=== PATIENT | female | born 1940 | race Caucasian/White ===

== ENCOUNTER 2016-07-18 13:27 | Outpatient (RCR) | payer MEDICARE ==
[~2016-07-18] VITALS: Ht 154.9 cm; Wt 57.6 kg
--- NOTE | 2016-07-18 13:46 | NUR ---
Pt arrived ambulatory with O2 on at 3 L. Pt is alert and oriented x 4. Pt placed in the treatment room. Pt arrived at 1343.
[2016-07-18] MEDS: OMALIZUMAB 150 MG (XOLAIR) VIAL SC SCH (14:13)
--- NOTE | 2016-07-18 14:20 | NUR ---
Pt left ambulatory after receiving med of Xolair SQ, one in upper L arm and one in upper R arm. Pt tolerated it well.
[2016-08-08] MEDS: OMALIZUMAB 150 MG (XOLAIR) VIAL SC SCH (15:30)
[2016-08-22] MEDS: OMALIZUMAB 150 MG (XOLAIR) VIAL SC SCH (13:38)
[2016-09-05] MEDS: OMALIZUMAB 150 MG (XOLAIR) VIAL SC SCH (14:10)
--- NOTE | 2016-09-19 13:24 | NUR ---
Pharmacy getting medication ready. Pt waiting in lobby.
[2016-09-19] MEDS: OMALIZUMAB 150 MG (XOLAIR) VIAL SC SCH (13:58)
[2016-10-03] MEDS ORDERED: OMALIZUMAB 150 MG (XOLAIR) VIAL SC SCH (13:30)
[2016-10-03 13:45] VITALS: BP 159/54
== END 2016-10-16 | disposition home or self-care (01) ==
LOC: EUOP 13:28
PROVIDERS: ATTEND Family Medicine
DX: J45.50 Severe persistent asthma, uncomplicated (principal); J44.9 Chronic obstructive pulmonary disease, unspecified
CPT/HCPCS: 96372; J2357

== ENCOUNTER 2016-10-17 13:24 | Outpatient (RCR) | payer MEDICARE ==
[~2016-10-17] VITALS: Ht 154.9 cm; Wt 57.6 kg
[2016-10-17] MEDS: OMALIZUMAB 150 MG (XOLAIR) VIAL SC SCH (13:33)
[2016-10-31] MEDS: OMALIZUMAB 150 MG (XOLAIR) VIAL SC SCH (13:42)
[2016-11-14 14:18] VITALS: BP 150/60
[2016-11-14] MEDS: OMALIZUMAB 150 MG (XOLAIR) VIAL SC SCH (14:21)
--- NOTE | 2016-11-14 14:31 | NUR ---
Pt arrived on unit. Obtained set of VS. Gave Xolair inj sub-cutaneously bilat upper arms. Pt ambulated off unit to private vehicle accompanied by volunteer.
== END 2016-11-14 14:35 | disposition home or self-care (01) ==
LOC: EUOP 13:24 → OB 11-14 13:39 → EUOP 11-14 14:35
PROVIDERS: ATTEND Family Medicine
DX: J44.9 Chronic obstructive pulmonary disease, unspecified (principal); J45.50 Severe persistent asthma, uncomplicated
CPT/HCPCS: 96372; J2357

== ENCOUNTER 2016-11-28 13:29 | Outpatient (RCR) | payer MEDICARE ==
[~2016-11-28] VITALS: Ht 154.9 cm; Wt 57.6 kg
[~2016-11-28 13:29] MED LIST: AC325T PO; ACET200V4 INH; ALB.5NB20 HHN; ALBU2.5V4 INH; ASCO100T6 PO; ASPI-860 PO; ASPI-894 PO; ATOR20TA PO; AZIT250T5 PO; BIOT5TAB PO; BISA10SU6 RC; BMT1T PO; BUDE10.2 IH; BUDE6HFA IH; BUDE6HFA INH; BUME1TAB4 PO; CALC-444 PO; CALC-696 PO; CARDIO TABS PO; CEFD300C PO; CHOL2000 PO; CITA20TA12 PO; CYAN10006 PO; CYAN10007 PO; DENO60DI SQ; DIGO250T PO; DIGO250T15 PO; DILT-23 PO; DILT120T11 PO; DILT240C86 PO; DOCU100C8 PO; DUONEB 0.5 MG-33 ML IH; FAMO-119 PO; FAMO40TA6 PO; FISH1CAP15 PO; FURO40TA4 PO; GFN600TCR PO; GUAI120013 PO; HYDR-3811 PO; HYPR15DR11 OU; IPRA0.2S18 IH; IPRA0.2S18 INH; LD5PT TOP; LEVA1.2515 IH; LEVA1.253 IH; MAG355OR16 PO; MAGN400T26 PO; MAGN500T PO; MGX400T PO; MICO25PO2 TOP; MTP25TSR PO; MTP50T PO; MULT-301 PO; NFBIOT1000 PO; NITR0.4T7 SL; NS.65NA45 NS; OLME20TA3 PO; OLME20TA5 PO; OMAL150V SC; OMEP10CA2 PO; OMEP20CA12 PO; OMEP20CA6 PO; OSLT75C PO; OXYC1TAB87 PO; POLY17PO2 PO; POLY17PO6 PO; POTA-57 PO; PRD10T PO; PRD20T PO; PRD5T PO; PRED10TA PO; ROFL500T PO; SENN8.6T6 PO; SODI4VIA26 IH; SPIR1TAB3 PO; SPIR25TA PO; TIOT18CA IH; TIOT18CA INH; UBID100C8 PO; UBID10CA5 PO; UBID1CAP51 PO; VIT B 12 PO; VIT1TABL81 PO; ZINC50TA31 PO; [UNRECOGNIZED DRUG - CODE] PO; [UNRECOGNIZED DRUG - OTHER]; [UNRECOGNIZED DRUG - OTHER] INH; vitamin b6
[2016-11-28] MEDS: OMALIZUMAB 150 MG (XOLAIR) VIAL SC SCH (14:01)
[2016-12-12] MEDS: OMALIZUMAB 150 MG (XOLAIR) VIAL SC SCH (14:39)
[2016-12-26] MEDS ORDERED: OMALIZUMAB 150 MG (XOLAIR) VIAL SC SCH (13:30)
[2017-01-07] MEDS ORDERED: LSNP10T PO (13:21)
[2017-01-23] MEDS ORDERED: OMALIZUMAB 150 MG (XOLAIR) VIAL SC SCH (13:30)
[2017-01-23 14:00] VITALS: BP 98/55
== END 2017-02-05 18:20 | disposition home or self-care (01) ==
LOC: EUOP 12-12 14:26
PROVIDERS: ATTEND Family Medicine
DX: J45.50 Severe persistent asthma, uncomplicated (principal); J44.9 Chronic obstructive pulmonary disease, unspecified
CPT/HCPCS: 96372; J2357

== ENCOUNTER → 2017-01-06 | Outpatient (REF) | payer MEDICARE ==
[~2017-01-06] MED LIST changes: +LSNP10T PO
== END ==
LOC: LAB 10:22
PROVIDERS: ATTEND Family Medicine
DX: R05 Cough (principal)
CPT/HCPCS: 87486; 87581; 87633; 87798

== ENCOUNTER 2017-01-07 08:48 | Inpatient (IN) | payer MEDICARE ==
[~2017-01-07] VITALS: Ht 154.9 cm; Wt 56.6 kg
[~2017-01-07 08:48] MED LIST changes: -LSNP10T PO
--- OUTSIDE RECORDS SUMMARY | 2017-01-07 08:54 | XMS REPORT | Continuity of Care Document ---
Author Author [facility] Address Unknown Phone Unavailable Care Team Providers Care Welfare Visitor Name Role Phone Alvaro Lacey MD PCP [phone] Insurance Providers Payer Name Policy Number Subscriber Name Relationship Medicare A And B [id number] Jimmy Freeman 18 Self / Same As Patient Blue Cross Mc[employer] Supp [id number] Jimmy Freeman 16 Self / Same As Patient Advance Directives Directive Response Recorded Date/Time Advanced Directives Yes 10/31/16 1:30pm Type Durable Power of Diamond Driller 02/11/16 2:23pm Type Durable Power of Diamond Driller 10/31/16 1:30pm Other Alma Ocampo Daughter or Jane Tejeda Granddaughter 02/11/16 2:23pm Problems Active Problems Medical Problem Onset Date Status Abdominal pain Unknown Acute Accidental fall 10/11/2013 Acute Acute exacerbation of chronic obstructive pulmonary disease (COPD) ~2014 Acute CAP (community acquired pneumonia) Unknown Acute COPD exacerbation 10/27/2014 Acute Cataract of left eye Unknown Acute Cataract of right eye Unknown Acute Chronic hypoxemic respiratory failure Unknown Acute Chronic obstructive pulmonary disease (COPD) Unknown Acute Compression fracture 02/21/2012 Chronic Digitalis toxicity ~01/02/2015 Acute Fall at home Unknown Acute HCAP (healthcare-associated pneumonia) Unknown Acute Hip pain 10/15/2013 Acute Hypoxia ~01/02/2015 Acute Laceration Unknown Acute Muscle weakness 09/21/2012 Acute Physical debility Unknown Acute Physical deconditioning Unknown Acute Pneumonia Unknown Acute Pneumothorax Unknown Acute Skin tear of left upper extremity Unknown Acute Medications Current Home Medications Medication Dose Units Route Directions Days/Qty Instructions Start Date Cholecalciferol (Vitamin D3) 2,000 Unit 2,000 Unit ORAL Daily Atorvastatin 20 Mg 20 Mg ORAL Bedtime 03/03/12 Tiotropium [place] 18 Mcg 1 Puff RESPIRATORY (INHALATION) Daily 02/09 Budesonide/Formoterol Fumarate 10.2 Gm 2 Puff RESPIRATORY (INHALATION) Twice A Day 09/26/12 Roflumilast 500 Mcg 250 Mcg ORAL Daily 09/26/12 Aspirin 81 Mg 81 Mg ORAL Daily 11/16/15 Docusate Sodium 100 Mg 100 Mg ORAL Twice A Day 11/16/15 Acetaminophen (Tylenol) 325 Mg 650 Mg ORAL Every 4HRS as needed for Pain 11/16/15 Hypromellose 15 Ml 1 Drop OPTHALMIC As Needed as needed for Dry Eyes 11/16/15 Bisacodyl 10 Mg 10 Mg RECTAL As Needed as needed for Constipation Mag Hydrox/Al Hydrox/Simeth 770 Ml 30 Ml ORAL Every 4HRS as needed for Indigestion 11/16/15 Sennosides 8.6 Mg 8.6 Mg ORAL Daily as needed for Constipation 11/15 Calcium Citrate/Vitamin D3 1 Each 1 Tab ORAL Twice A Day 11/16/15 Guaifenesin 1,200 Mg 1,200 Mg ORAL Twice A Day 11/16/15 Ubidecarenone 100 Mg 100 Mg ORAL Bedtime 11/16/15 Fish Oil/Dha/Epa 1 Each 2 Cap ORAL Daily 11/16/15 Polyethylene Glycol 3350 17 Gm 17 Gm ORAL Daily as needed for Constipation 0 12/05/15 Cyanocobalamin 1,000 Mcg 1,000 Mcg ORAL Daily 0 12/05/15 Levalbuterol Hcl 1.25 Mg/3 Ml 1.25 Mg RESPIRATORY (INHALATION) Four Times Daily 02/11/16 Magnesium Oxide 500 Mg 500 Mg ORAL Daily 02/11/16 Prednisone 5 Mg 5 Mg ORAL Every Other Day 02/11/16 Bumetanide 1 Mg 1 Mg ORAL Daily 02/11/16 Famotidine 20 Mg 20 Mg ORAL Daily 02/11/16 Digoxin 250 Mcg 250 Mcg ORAL Daily 02/11/16 Biotin 5 Mg 5 Mg ORAL Daily 02/11/16 Spironolactone 25 Mg 25 Mg ORAL Daily 02/11/16 Metoprolol Succinate 25 Mg 25 Mg ORAL Daily 02/11/16 Past Home Medications Medication Directions Ordered Status Spironolact/Hydrochlorothiazid 1 Each Tablet, 1 Each Oral Daily 02/21/12 Discontinued Guaifenesin 600 Mg Tab, 1200 Mg Oral Twice A Day 02/21/12 Discontinued Atorvastatin 20 Mg Tablet, 20 Mg Oral Daily 02/21/12 Discontinued Olmesartan Medoxomil 20 Mg Tablet, 20 Mg Oral Bedtime 02/21/12 Discontinued Prednisone 10 Mg Tablet, 10 Mg Oral 02/21/12 Discontinued Bumetanide 1 Mg Tablet, 1 Mg Oral 02/21/12 Discontinued Omeprazole 20 Mg Capsule.dr, 20 Mg Oral Twice A Day 02/21/12 Discontinued Tiotropium [place] 18 Mcg Cap.w.dev, 18 Mcg Respiratory (Inhalation) Daily Discontinued Omalizumab 150 Mg Vial, 150 Mg Subcutaneous Monthly 02/21/12 Discontinued Roflumilast 500 Mcg Tablet, 250 Mcg Oral Daily 02/21/12 Discontinued Denosumab 60 Mg/1 Ml Disp.syrin, 60 Mg Sub-Q 02/21/12 Discontinued Budesonide/Formoterol Fumarate 1 Inhaler Aero, 1 Inhaler Respiratory ( Inhalation) Twice A Day 02/21/12 Discontinued Ascorbic Acid 100 Mg Tablet, 100 Mg Oral Daily 02/21/12 Discontinued Ipratropium [place] 0.5 Mg/2.5 Ml Nebu, 0.5 Mg Respiratory (Inhalation) 22/08 Discontinued Albuterol Sulf 20 Ml Nebu, 20 Ml Hand Held Nebulizer 02/21/12 Discontinued [Sherrill Resp] , 03/03/12 Discontinued Olmesartan Medoxomil 20 Mg Tablet, 20 Mg Oral Naeem 03/03/12 Discontinued Budesonide/Formoterol Fumarate 1 Inhaler Aero, 2 Puff Respiratory (Inhalation) Twice A Day 03/03/12 Discontinued Prednisone 10 Mg Tab, 10 Mg Oral Eod 03/03/12 Discontinued Spironolactone 25 Mg Tablet, 25 Mg Oral Daily 03/03/12 Discontinued Omeprazole 10 Mg Capsule.dr, 20 Mg Oral Daily 03/03/12 Discontinued [Albuterol Acelylcysteine] 25 Gm Powder, 1 Puff Respiratory (Inhalation) Four Times Daily 03/03/12 Discontinued [Cardio Tabs] , 1000 Mg Oral Twice A Day 03/03/12 Discontinued Vit B6/Mag Cit & Ox/Potass Cit 1 Each Tablet.er, 400 Mg Oral Daily 03/03/12 Discontinued [Vit B 12] , 1000 Mg Oral Daily 03/03/12 Discontinued Ascorbic Acid 1,000 Mg Tablet.er, 1000 Mg Oral Daily 03/03/12 Discontinued Zinc 50 Mg Tablet, 50 Mg Oral 09/21/12 Discontinued Fish Oil/Dha/Epa 1 Each Capsule, 2 Each Oral Daily 09/21/12 Discontinued Ubidecarenone/Vit E Acetate 1 Each Capsule, 1 Cap Oral Daily 09/21/12 Discontinued [Vitamin B6] , 09/21/12 Discontinued Bumetanide 1 Mg Tab, 1 Mg Oral Bid@,17 09/26/12 Discontinued Prednisone 20 Mg Tab, 20 Mg Oral Daily 09/26/12 Discontinued Acetylcysteine 10 Ml Cecile, 4 Ml Respiratory (Inhalation) Twice A Day 09/26/12 Discontinued Ipratropium/Albuterol Sulfate 3 Ml Ampul.neb, 3 Ml Respiratory (Inhalation) Four Times Daily 09/26/12 Discontinued Calcium Citrate/Vitamin D3 1 Each Tablet, 1 Tab Oral Twice A Day 09/26/12 Discontinued Citalopram Hydrobromide 20 Mg Tablet, 20 Mg Oral Daily 09/26/12 Discontinued Cyanocobalamin (Vitamin B-12) 1,000 Mcg Tablet, 1000 Mcg Oral Daily 09/26/12 Discontinued Magnesium Oxide 400 Mg Tablet, 400 Mg Oral Daily 09/26/12 Discontinued Multivitamin 1 Each Tablet, 1 Tab Oral Daily 09/26/12 Discontinued Guaifenesin 1,200 Mg Tbmp.12hr, 1200 Mg Oral Twice A Day 10/28/13 Discontinued Famotidine 20 Mg Tablet, 20 Mg Oral Daily 10/28/13 Discontinued Prednisone 5 Mg Tab, 5 Mg Oral As Directed 10/27/14 Discontinued Oxycodone/Acetaminophen 1 Each Tablet, 1 Tab Oral Every 6 Hours as needed Discontinued Sodium Chloride For Inhalation 4 Ml Vial.neb, 4 Ml Respiratory (Inhalation) Twice A Day 10/28/13 Discontinued Diltiazem Hcl 120 Mg Tablet, 120 Mg Oral Daily 01/02/15 Discontinued Metoprolol Succinate 25 Mg Tab, 25 Mg Oral Daily 01/02/15 Discontinued Digoxin 250 Mcg Tablet, 250 Mcg Oral Daily 01/02/15 Discontinued Omeprazole 20 Mg Capsule.dr, 20 Mg Oral Twice A Day 05/10/15 Discontinued Biotin 1,000 Mcg Tablet, 3000 Mcg Oral Bedtime 05/10/15 Discontinued Denosumab 60 Mg/1 Ml Disp.syrin, 60 Mg Sub-Q As Directed 05/10/15 Discontinued Omalizumab 150 Mg Vial, 150 Mg Subcutaneous As Directed 05/10/15 Discontinued Levalbuterol Hcl 1.25 Mg/3 Ml Vial.neb, 1.25 Mg Respiratory (Inhalation) Four Times Daily 05/10/15 Discontinued Ubidecarenone 10 Mg Capsule, 100 Mg Oral Bedtime 05/10/15 Discontinued Ipratropium [place] 0.5 Mg/2.5 Ml Nebu, 0.5 Mg Respiratory (Inhalation) Four Times Daily 05/10/15 Discontinued Aspirin 81 Mg Tablet.dr, 81 Mg Oral Daily 07/30/15 Discontinued Azithromycin 250 Mg Tablet, 250 Mg Oral Every Friday, Friday, And Friday11/16/15 Discontinued Diltiazem Hcl 120 Mg Cap.er.24h, 240 Mg Oral Daily 11/16/15 Discontinued Famotidine 40 Mg Tablet, 20 Mg Oral Bedtime 11/16/15 Discontinued Furosemide 40 Mg Tablet, 40 Mg Oral Bid@0900,1400 11/16/15 Discontinued Lidocaine 1 Ea Patch, 1-2 Patch Topical Daily@1900 11/16/15 Discontinued Metoprolol Tartrate (Lopressor) 50 Mg Tablet, 50 Mg Oral Twice A Day Discontinued Oseltamivir Phosphate 75 Mg Cap, 75 Mg Oral Daily 11/16/15 Discontinued Polyethylene Glycol 3350 17 Gm Powd.pack, 17 Gm Oral Twice A Day 11/16/15 Discontinued Potassium Chloride 20 Meq Tablet.er, 20 Meq Oral Daily 11/16/15 Discontinued Albuterol Sulfate 2.5 Mg/3 Ml Vial.neb, 3 Ml Respiratory (Inhalation) Every 4HRS as needed for Shortness Of Breath 11/16/15 Discontinued Hydrocodone Bit/Acetaminophen 1 Each Tablet, 1 Each Oral Every 4HRS as needed for Pain 11/16/15 Discontinued Nitroglycerin 0.4 Mg Tab.subl, 0.4 Mg Sublingual As Needed as needed for Chest Pain 11/16/15 Discontinued Miconazole 25 Gm Powder, 1 Applic Topical Twice A Day as needed for Itching And Rash 11/16/15 Discontinued Sodium Chloride 45 Ml [place], 1 [place] Nasal As Needed as needed for Congestion 11/16/15 Discontinued Magnesium Oxide (Magox) 400 Mg Tablet, 400 Mg Oral Daily 11/16/15 Discontinued Diltiazem Hcl 240 Mg Cap.er.24h, 240 Mg Oral Daily 11/16/15 Discontinued Hydrocodone Bit/Acetaminophen 1 Each Tablet, 1 Each Oral Every 4HRS as needed for Pain 12/05/15 Discontinued Cefdinir (Omnicef) 300 Mg Capsule, 300 Mg Oral Every 12 Hrs On Schedule 12/16 Discontinued Ipratropium [place] 0.5 Mg/2.5 Ml Nebu, 0.5 Mg Respiratory (Inhalation) Four Times Daily 02/11/16 Discontinued Social History Social History Problem Response Recorded Date/Time Onset Date Status Exposure to occupational hazards No 2016 2:23pm Query Response Start Date Stop Date Smoking Status Former smoker Hospital Discharge Instructions No hospital discharge instructions. Plan of Care Prescriptions See Medication Section Functional Status No functional status results. Allergies, Adverse Reactions, Alerts Allergen Type Severity Reaction Status Last Updated Penicillin Allergy Mild Rash Active 10/31/16 Sulfa (Sulfonamide Antibiotics) Adverse Reaction Mild rash Active 10/31/16 levofloxacin Allergy Mild Rash Active 10/31/16 Immunizations Name Given Type Status Date Pneumonia Vaccine Received if Current 06/08/15 Historical Historical Date Influenza Vaccine Received if Current 07/09/14 Historical Historical Vital Signs Acute Vital Signs Vital Response Date/Time Temperature (Fahrenheit) 98.1 11/14/2016 2:18pm Pulse 57 bpm 11/14/2016 2:18pm Respirations 16 11/14/2016 2:18pm Height 5 ft 1 in Weight 127 lb Body Mass Index 24.0 kg/m^2 Results No known relevant diagnostic tests, laboratory data and/or discharge summary. Procedures Procedure Status Date Provider(s) THER/PROPH/DIAG INJ SC/IM Completed 07/18/16 THER/PROPH/DIAG INJ SC/IM Completed 07/18/16 THER/PROPH/DIAG INJ SC/IM Completed 07/18/16 THER/PROPH/DIAG INJ SC/IM Completed 07/18/16 THER/PROPH/DIAG INJ SC/IM Completed 07/18/16 THER/PROPH/DIAG INJ SC/IM Completed 07/18/16 Completed 07/18/16 Completed 07/18/16 Completed 07/18/16 Completed 07/18/16 Completed 07/18/16 Completed 07/18/16 Encounters Encounter Location Arrival/Admit Date Discharge/Depart Date Attending Provider Discharged Recurring [facility] 11/14/16 1:28pm 11/14/16 2:35pm Alvaro Lacey MD Discharged Recurring [facility] 07/18/16 1:28pm 10/16/16 11:59pm Alvaro Lacey MD
--- NOTE | 2017-01-07 09:09 | NUR ---
pt states dr villagomez in [place] is her data modeling architect
[2017-01-07 09:34] LABS: BASOPHILS % (AUTO) 1 % (0-2); EOSINOPHILS % (AUTO) 0 % (0-4); LYMPHOCYTES # (AUTO) 0.4 X10^3; MEAN CORPUSCULAR HEMOGLOBIN 30.7 PG (26.0-34.0); MEAN PLATELET VOLUME 10.8 FL (6.0-9.5); MONOCYTES # (AUTO) 1.1 X10^3; MONOCYTES % (AUTO) 11 % (3-11); NEUTROPHILS % (AUTO) 83 % (51-67); PLATELET COUNT 233 10^3uL (150-450); WHITE BLOOD COUNT 10.83 10^3uL (4.0-11.0)
[2017-01-07 09:37] LABS: MEAN CORPUSCULAR HGB CONC 30.7 g/dL (31.0-37.0); MEAN CORPUSCULAR VOLUME 100 FL (80-100)
[2017-01-07 09:54] LABS: ALBUMIN 4.3 g/dL (3.4-5.0); ALKALINE PHOSPHATASE 69 U/L (38-126); BUN/CREATININE RATIO 29 (10-20); CALCULATED IONIZED CALCIUM 4.4 mg/dL (3.8-4.6); TOTAL PROTEIN 7.3 g/dL (6.4-8.5)
--- NOTE | 2017-01-07 10:21 | Diagnostic Imaging Report ---
INDICATION: Shortness of air. COMPARISON STUDY: Chest from 02/11/16. FINDINGS: Frontal and lateral views of the chest demonstrate no significant change from the previous exam. Emphysematous changes are again identified. There is chronic blunting of the left costophrenic angle. The heart size is upper normal, but unchanged. Central pulmonary vessels appear prominent consistent with some pulmonary hypertension. Multiple compression fractures and kyphoplasties are again identified. IMPRESSION: 1. Stable COPD and borderline cardiomegaly. 2. There are no acute findings. Dictated by: Dictated on workstation # [id number]
--- NOTE | 2017-01-07 11:00 | NUR ---
PT DAUGHTER & ANOTHER MALE VISITOR AT BEDSIDE. PT CONT W/FAN SHE IS HOT. DENIES OTHER NEEDS AT THIS TIME. CL
[2017-01-07 11:35] VITALS: BP 169/71
--- NOTE | 2017-01-07 11:35 | NUR ---
Patient admitted to room 301 per cart from ER. Respiration rate= 32 on 6 liters NC. She is using accessory muscles to breathe and has difficulty speaking a full sentence without taking a breath. O2 sat.= 100% on 6 liters.
--- NOTE | 2017-01-07 11:45 | NUR ---
Condition unchanged with resp. rate continuing in the 30's.
--- NOTE | 2017-01-07 12:05 | NUR ---
Assisted the patient to the restroom- minimal assist needed with ambulation. O2 on at 6 liters. No significant increase in shortness of breath from a sitting position.
[2017-01-07] MEDS ORDERED: ONDANSETRON 2 MG/ML (Z0FRAN) 2 ML VIAL IV PRN (12:10)
[2017-01-07] MEDS ORDERED: ACETAMINOPHEN 325 MG TAB (TYLENOL) PO PRN (12:10)
[2017-01-07] MEDS ORDERED: SENNOSIDES 8.6 MG (SENOKOT) TAB PO PRN (12:15)
[2017-01-07] MEDS ORDERED: methylPREDNISolone 125 MG (Solu-MEDROL) VIAL IV ONE (12:15)
[2017-01-07] MEDS ORDERED: POLYETHYLENE GLYCOL 17 GM (MIRALAX) PACKET PO PRN (12:15)
[2017-01-07] MEDS ORDERED: ASPIRIN 81 MG CHEW (LOW-DOSE) PO SCH (12:15)
--- NOTE | 2017-01-07 12:15 | NUR ---
Discussed the patient's current condition with Linda CURTIS. There has not been a further decline in the patient's condition since admission to the floor but I feel she will wear out from labored breathing eventually.
--- NOTE | 2017-01-07 12:29 | History and Physical (E) ---
History & Physical PCP: Dr Lacey CC: SOB HPI Azra Rodriguez is a 76 year old female admitted from home , seen yesterday by her PCP. Tested positive for RSV. She has acute SOB and tachypnea. She does not feel well. She states that she is a full code and wants intubated if that is the issue. ABGs being drawn stat, maximizing respiratory treatments, IV Solumedrol now. PC02 71 PO2 31, she is in acute respiratory failure when she arrived to the floor. She is requiring more oxygen and currently on the Triology with 8L of oxygen. Denies chest pain but feels very weak and tired from breathing so hard. I spoke with Dr Lacey by phone and he wants her to be transferred to [place] where Dr Navarro is able to see her. Upon arrival to the floor critical care time initiated. Respiratory therapy ,Dr Stevens ,and nursing staff in room, Trilogy vent applied, IV Solumedrol, respiratory treatments. Labs done, Troponin negative, EKG done showing ekg changes in leads V3-6. PMH * HTN * Atrial fibrillation * CHF * Osteoporosis/osteoarthritis * GERD * Compression fractures * DLD * CAD/PVD--Pt sees Dr. Qureshi * COPD--Patient sees Dr. Navarro. On 2 liters of oxygen at home x several years. PSH * PEG and trach placement October 2015 * Chest tube placement October 2015 * Cataract surgery 06/2015 * Knee surgery in 2011 * EGD and colonoscopy in 2003 * Rotator cuff repair 2010 * Hip replacement * CEA in 1995 * Heart catheterization with stent placement in 1999 * Breast biopsy x 2 * Bilateral tubal ligation ALLERGIES: Please see list at end of report. HOME MEDICATIONS: Please see list at end of report. FH * Parents--Heart disease and diabetes. * Siblings--Brother with heart disease Sister healthy. * Children--Son has HTN. SH * Smoked x 35 years, stopped in 1993 * Denies alcohol or drug use * Lives at home alone ROS CONSTITUTION: Denies weight loss. Denies fever or chills. HEENT: No change in vision or hearing. No sores in mouth, sore throat. CV: No chest pain, palpitations. PULM: Endorses increased cough, SOB, tachypnea. GI: No upset stomach, nausea, vomiting, constipation, or diarrhea. No blood in stool. : No dysuria. No blood in urine. MS: Per HPI, exam. NEURO: feels weak and tired, no focal neuro changes. INTEG: no rashes or lesions ENDO: No heat or cold intolerance. No polydipsia or polyuria. HEME/LYMPH: No easy bruising or bleeding. No swollen glands. PSYCH: No change in mood or behavior. OBJECTIVE Vital Signs Date Time Temp Pulse Resp B/P Pulse Ox O2 Delivery O2 Flow Rate FiO2 01/07/17 09:06 94 Nasal Cannula 6 01/07/17 08:59 98.9 101 32 160/70 GEN: Awake, alert, oriented, tachypnea, cough and appears weak HEENT: EOMI, PERRL, moist oral mucosa. Temporal wasting. CV: RRR S1 S2 normal with no murmur LUNGS: Diminished, but audible air entry with wheezes throughout. ABD: Soft, NT/ND with normal bowel sounds. EXTR: trace edema. Ecchymoses over lower extremities. Extremities warm, dry, well-perfused. INTEG: Several ecchymoses. NEURO: No focal motor neuro deficit. Psychomotor slowing. Generalized decondition. LABS: Laboratory Results Past 24 Hrs 01/07/17 08:50: Alanine Aminotransferase (ALT/SGPT) 42, Albumin 4.3, Albumin/Globulin Ratio 1.433, Alkaline Phosphatase 69, Anion Gap , Aspartate Amino Transf (AST/SGOT) 29 , BUN/Creatinine Ratio 29, Basophils # (Auto) 0.1, Basophils (%) (Auto) 1, Blood Urea Nitrogen 28, C-Reactive Protein 3.20, Calcium Level 10.1, Calcium/ Ionized Calcium Ratio 4.4, Calculated Osmolality 274, Carbon Dioxide Level 31, Chloride Level 97, Creatinine 0.97, Eosinophils # (Auto) 0.0, Eosinophils (%) ( Auto) 0, Estimat Glomerular Filtration Rate 67.2, Estimated GFR (Non- 55.5, Glucose Level 106, Hematocrit 39.40, Hemoglobin 12.1, Lymphocytes # (Auto) 0.4, Lymphocytes (%) (Auto) 4, Mean Corpuscular Hemoglobin 30.7, Mean Corpuscular Hemoglobin Concent 30.7, Mean Corpuscular Volume 100, Mean Platelet Volume 10.8, Monocytes # (Auto) 1.1, Monocytes (%) (Auto) 11, Neutrophils # (Auto) 9.0, Neutrophils (%) (Auto) 83, Platelet Count 233, Potassium Level 5.0, Red Blood Count 3.94, Red Cell Distribution Width 12.8, Sodium Level 139, Total Bilirubin 0.4, Total Protein 7.3, White Blood Count 10.83 IMAGING: CXR -COPD ASSESSMENT Azra Rodriguez is a 76 year old female admitted from ED today 01-07-17 for acute respiratory failure due to RSV and end stage COPD. She has significant medical history including prolonged hospitalization and rehab after suffering life- threatening pneumothoraces and cardiopulmonary arrest. She has h/o a prolonged residential stay in past for HCAP. She has numerous chronic problems. CHRONIC ISSUES * Chronic Hypoxic, Hypercapneic Respiratory Failure: Oxygen chronic, titrate per protocol. Home trilogy vent. * Severe, End-Stage COPD (Stage IV) with Emphysema: Roflumilast (if available from home supply), albuterol, fluticasone/salmeterol (sub for budesonide/ formoterol), tiotropium. Albuterol PRN. Chronic prednisone. * HLD: Atorvastatin, fish oil * GERD: Famotidine * HTN: Metoprolol * CAD: Aspirin, ubidecarenone * Chronic Systolic CHF: Furosemide, potassium, metoprolol. * HTN: Metoprolol, spironolactone * BLE Edema: bumetanide * Chronic Pain: [place] * Constipation: Bowel regimen * Atrial Fibrillation: Digoxin PLAN Code Status: Full code * Disposition: She will be transferred to [place] urgently for Pulmonary consult and management for respiratory failure. She states she wants to be intubated if she can't improve with current treatments. Dr Knott is accepting doctor. Pt seen and examined with FUNERAL ASSISTANT, agree with above. Upon arrival to floor from ER , pt was working very hard to breathe. Solumedrol given and breathing treatments done, EKG done which showed ST depression in V3-6, trilogy started. Due to her hx of decompensating fairly quickly when working this hard to breathe , decision was made to transfer to [place], which is where nursery teacher is Ram[place]. Dr. Knott in the ER accepted that transfer for the hospitalist service. Pt was sent by EMS with close monitoring en route. Allergies/Home Medications Allergies: Coded Allergies: Penicillins (Verified Allergy, Mild, Rash, 12/26/16) Angioedema-per (from [facility] record 06-21-2009 levofloxacin (Verified Allergy, Mild, Rash, 12/26/16) From [facility] record-Talked with Dr. Lacey-NOT allergy 06-21-2009 Sulfa (Sulfonamide Antibiotics) (Verified Adverse Reaction, Mild, rash, ) last month-onset Reported Home Medications Scheduled Aspirin (Maribel Chewable) 81 MG PO DAILY (Reported) Atorvastatin (Lipitor) 20 MG PO HS (Reported) Biotin (Biotin) 5 MG PO DAILY (Reported) Budesonide/Formoterol Fumarate (Symbicort 160-4.5 mcg Inhaler) 2 PUFF IH BID ( Reported) Bumetanide (Bumex) 1 MG PO BID@0900,1400 (Reported) Calcium Citrate/Vitamin D3 (Citracal + D Maximum Caplet) 1 TAB PO BID (Reported ) Cholecalciferol (Vitamin D3) (Vitamin D) 2,000 UNIT PO DAILY (Reported) Cyanocobalamin (Vitamin B-12) (Vitamin B-12) 1,000 MCG PO DAILY Digoxin (Digox) 250 MCG PO DAILY (Reported) Docusate Sodium (Docusate Sodium) 100 MG PO BID (Reported) Famotidine (Pepcid) 20 MG PO DAILY (Reported) Fish Oil/Dha/Epa (Fish Oil 1,200 mg Fish Oil) 2 CAP PO DAILY (Reported) Guaifenesin (Mucinex) 1,200 MG PO BID (Reported) Levalbuterol HCl (Levalbuterol HCl) 1.25 MG IH QID (Reported) Lisinopril (Lisinopril) 10 MG PO HS (Reported) Magnesium Oxide (Magnesium Oxide) 500 MG PO DAILY (Reported) Metoprolol Succinate (Toprol XL) 25 MG PO DAILY (Reported) Prednisone (Deltasone) 5 MG PO EVERY OTHER DAY (Reported) Roflumilast (Daliresp) 250 MCG PO DAILY (Reported) Spironolactone (Aldactone) 25 MG PO DAILY (Reported) Tiotropium [place] (Spiriva) 1 PUFF INH DAILY (Reported) Ubidecarenone (Co Q-10) 100 MG PO HS (Reported) Scheduled PRN Acetaminophen (Acetaminophen) 650 MG PO Q4H PRN PRN PAIN (Reported) Bisacodyl (Bisacodyl) 10 MG RC NEEDED PRN PRN CONSTIPATION (Reported) Hypromellose (Artificial Tears Eye Drops) 1 DROP OU NEEDED PRN PRN DRY EYES ( Reported) Mag Hydrox/Al Hydrox/Simeth (Maalox Advanced Suspension) 30 ML PO Q4H PRN PRN INDIGESTION (Reported) Polyethylene Glycol 3350 (Miralax) 17 GM PO DAILY PRN PRN constipation Sennosides (Senna) 8.6 MG PO DAILY PRN PRN CONSTIPATION (Reported) Copies to: End of Report . Linda Wilson APRN January 07, 2017 12:29 Aram Stevens MD January 07, 2017 21:01
--- NOTE | 2017-01-07 12:30 | NUR ---
Called to room due to Pt in distress for STAT ABG, bronchodilator Tx, EKG and set up on home trilogy. Pr found lying in bed on 6 l/min NC, ABG drawn and results given to Linda Wilson, placed on Trilogy on home settings with 8 l/min O2 bled in. 1.25 mg Xopenex diluted with 3cc NS given via SVN. BS coarse rhonchi in left lung with low volume of air movement. RR 28-32 before being placed on Trilogy with minimal decrease in WOB on her Trilogy.
[2017-01-07] MEDS ORDERED: SODIUM CHLORIDE FLUSH 10 ML ONE (12:32)
[2017-01-07 12:37] LABS: ABG PH 7.29 (7.35-7.45)
[2017-01-07 12:38] LABS: ABG OXYGEN SATURATION 50 % (95-98); ABG PCO2 72 mmHg (35-45); ABG PO2 31 mmHg (80-105)
[2017-01-07] MEDS ORDERED: SODIUM CHLORIDE 0.9% NEB SOLN 3 ML VIAL ONE (12:41)
[2017-01-07] MEDS ORDERED: LEVALBUTEROL 1.25 MG/0.5 ML (XOPENEX) NEB INH ONE (12:41)
[2017-01-07] MEDS ORDERED: LEVALBUTEROL HCL 1.25 MG IH SCH (13:00)
--- NOTE | 2017-01-07 13:15 | NUR ---
Respiration rate= 24 with her trilogy on.
[2017-01-07] MEDS ORDERED: LSNP10T PO (13:21)
[2017-01-07 13:31] VITALS: BP 169/71
--- NOTE | 2017-01-07 13:46 | Discharge Instructions (E) ---
Discharge Instructions Instructions transfer to Linda Dodd APRN January 07, 2017 13:46
--- NOTE | 2017-01-07 14:15 | NUR ---
Resp. rate= 22. Patient is resting without restlessness with her trilogy on.
--- NOTE | 2017-01-07 14:20 | NUR ---
Called report to [facility]. Spoke to Dr. Knott at his request.
--- NOTE | 2017-01-07 14:55 | NUR ---
Patient transferred to [facility] per EMS.
[2017-01-07 19:36] VITALS: BP 135/76
[2017-01-07] MEDS ORDERED: ATORVASTATIN 10 MG (LIPITOR) TABLET PO SCH (21:00)
[2017-01-07] MEDS ORDERED: COENZYME Q10 100 MG CAPSULE PO SCH (21:00)
[2017-01-07] MEDS ORDERED: NON-FORMULARY MEDICATION 1 EA EA (Atorvastatin (Lipitor) 20 MG) PO SCH (21:00)
[2017-01-08] MEDS ORDERED: SPIRONOLACTONE 25 MG (ALDACTONE) TABLET PO SCH (09:00)
[2017-01-08] MEDS ORDERED: ROFLUMILAST 250 MCG PO SCH (09:00)
[2017-01-08] MEDS ORDERED: BUMETANIDE 1 MG (BUMEX) TAB PO SCH (09:00)
[2017-01-08] MEDS ORDERED: TIOTROPIUM 18 MCG/CAP (SPIRIVA) INHALER (5 CAPS) IH SCH (09:00)
[2017-01-08] MEDS ORDERED: NON-FORMULARY MEDICATION 1 EA EA (Magnesium Oxide 500 MG) PO SCH (09:00)
== END 2017-01-07 14:55 | disposition short-term general hospital (02) | DRG 189 ==
LOC: EDUNIT# 08:48 → ED 08:49 → MED/SURG 10:45
PROVIDERS: ADMIT Family Medicine; ATTEND Family Medicine
DX: J96.22 Acute and chronic respiratory failure with hypercapnia (principal); I50.22 Chronic systolic (congestive) heart failure; J96.21 Acute and chronic respiratory failure with hypoxia; J43.9 Emphysema, unspecified; I48.91 Unspecified atrial fibrillation; I25.10 Atherosclerotic heart disease of native coronary artery without angina pectoris; I11.0 Hypertensive heart disease with heart failure; E78.5 Hyperlipidemia, unspecified; B97.4 Respiratory syncytial virus as the cause of diseases classified elsewhere; Z99.81 Dependence on supplemental oxygen; Z86.74 Personal history of sudden cardiac arrest; Z95.5 Presence of coronary angioplasty implant and graft; Z87.891 Personal history of nicotine dependence
CPT/HCPCS: 36415; 36600; 71020; 80053; 82803; 84484; 85025; 86140; 94640; 99284

== ENCOUNTER → 2017-01-07 | Outpatient (CLI) | payer MEDICARE | LOC: EMS 08:35 | PROVIDERS: ATTEND Emergency Medicine | DX: J96.00 Acute respiratory failure, unspecified whether with hypoxia or hypercapnia (principal); B97.4 Respiratory syncytial virus as the cause of diseases classified elsewhere ==